=== PATIENT | male | born 1960 | race Caucasian/White ===

== ENCOUNTER → 2016-12-02 | Outpatient (CLI) | payer BC, OTHER ==
[~2016-12-02] MED LIST: AMBIEN 5 MG TABL5 M1 PO; ASPIR 8181 MG PO; NORCO 5-325 TA1 EACH PO; PRAVACHOL40 MG PO; XARELTO15 MG PO
== END ==
LOC: MRI 11-19 10:41
DX: M70.52 Other bursitis of knee, left knee (principal)